=== PATIENT | female | born 1950 | race Caucasian/White ===

== ENCOUNTER 2016-03-09 07:44 | Outpatient (CLI) | payer OTHER ==
[2013-11-05 16:44] VITALS: BMI 25.4
--- NOTE | 2016-03-09 08:28 | CT ---
EXAM: CT of the lumbar spine without contrast History: Lower back pain, history of breast cancer. Comparison: Thoracic spine CT 03/09/2016 Technique: Multiplanar CT images through the lumbar spine were obtained without the administration of IV contrast Findings: Atherosclerotic vascular calcifications. Patchy partially visualized infiltrate within t he left lower lobe. No acute fracture or subluxation. No suspicious lytic or blastic osseous lesions identified by CT. Moderate to severe degenerative disc disease at L1-L2 with endplate sclerosis, vacuum disc phenomen on and osteophyte formation. T12-L1: Bony spinal canal is not compromised and there is no significant bony neural foraminal narr owing. L1-L2: Small to moderate paracentral disc protrusion with no significant bony central canal stenosi s. Mild bilateral bony neural foraminal narrowing secondary to ligamentous and facet hypertrophy. L2-L3: Small disc bulge with no significant bony central canal stenosis. Mild to moderate right an d mild left bony neural foraminal narrowing secondary to ligamentous and facet hypertrophy. L3-L4: Small disc bulge effacing the anterior thecal sac with no significant bony central canal marycarmen nosis. Mild to moderate bilateral bony neural foraminal narrowing secondary to ligamentous and face t hypertrophy. L4-L5: Modest disc protrusion effacing the anterior thecal sac causing a moderate degree of central canal stenosis. There is triangulation of the thecal sac secondary to ligamentous hypertrophy. Mo derate bilateral bony neural foraminal narrowing secondary to ligamentous and facet hypertrophy. L5-S1: Small posterior disc osteophyte complex causing mild bony central canal stenosis. Mild to m oderate bilateral bony neural foraminal narrowing secondary to ligamentous and facet hypertrophy. Impression: 1. No acute osseous abnormality of the lumbar spine and no suspicious lytic or blastic osseous lesi ons identified by CT. 2. Moderate to severe degenerative disc disease at L1-L2. 3. Level by level analysis as detailed above with findings most significant at L4-L5.
--- NOTE | 2016-03-09 08:29 | CT ---
EXAM: CT thoracic spine without contrast. HISTORY: Back pain. Breast cancer. COMPARISON: Radiograph 05/27/[address] 01/22/2010. TECHNIQUE: Multiple axial images of the thoracic spine were obtained without intravenous contrast. Images were reformatted in the sagittal and coronal planes. FINDINGS: The bones are demineralized. No osteolytic or osteoblastic lesions are seen. The normal curvature and alignment are maintained. Vertebral body heights are normal. No fracture or subluxa tion is seen. Multilevel loss of disc height noted, greatest at T7-8 and T8-9 which is moderate. M ultilevel endplate osteophyte formation noted, greater in the [id number] thoracic spine. Disc ost eophyte formation at T8-9 and T9-10 cause flattening of the ventral thecal sac. No significant centr al canal stenosis identified. Right-sided chest port and left-sided pacemaker noted. There has been previous anterior fusion at C 5-C7 with partial corpectomy and strut graft placement at C6. Calcified and noncalcified mediastinal lymph nodes are present. Subpleural nodular density in the posterior left lower lobe measures up t o 1.3 x 0.8 cm on axial images 77 and 78. More ill-defined small nodular and linear densities are s een in the left lower lobe. Atherosclerotic calcifications are present. Possible left renal cyst o n axial image 97. IMPRESSION: 1. No acute abnormality of the thoracic spine. 2. Degenerative disc disease, greater in the lower thoracic spine. 3. Left lower lobe nodule which could be an area of subsegmental atelectasis or pneumonitis. Follo w-up chest CT within 3 months recommended for reassessment.
--- NOTE | 2016-03-09 12:28 | NM ---
EXAM: Whole-body bone scan. HISTORY: Mid and low back pain for 1 month. Breast cancer. COMPARISON: None of this type. PROCEDURE: The patient was injected with 26.7 mCi of 99m technetium HDP intravenously. After an alex ropriate interval, whole-body anterior and posterior images were obtained. Additional spot images w ere obtained. FINDINGS: The thoracic and lumbar spine demonstrate age appropriate changes. There is minimal increa sed activity at the T9-10 disc level which is probably associated with degenerative disease. The rib cage is normal in appearance. The pelvic skeleton is normal in appearance. The kidneys and bladder demonstrate normal, physiologic activity. The lower extremeties demonstrate age appropriate activi ty in the major joints. The upper extremeties demonstrate age appropriate levels of activity in the major joints. Note is made of a prominent increased activity at the first metacarpal carpal articul ations bilaterally. There is modest activity in the AC joints and sternoclavicular joints and arguello um.. The patient is post median sternotomy. The cervical spine demonstrates age appropriate finding s. The calvarium and face demonstrate a normal distribution of activity. IMPRESSION: 1. The whole-body bone scan demonstrates age appropriate findings in the thoracic and lumbar spine. There is modest increased activity in the mid thoracic spine at about the T9-10 disc level which is probably associated with degenerative disc disease. 2. There is evidence of degenerative changes in joints in the extremities listed in the report and o f increased activity in the sternum most probably due to median sternotomy. 3. No focal lesion having the appearance of metastatic disease is demonstrated.
== END 2016-03-09 07:45 | disposition home or self-care (01) ==
LOC: RAD 07:44
PROVIDERS: ATTEND Family Medicine
DX: M54.5 Low back pain (principal); Z85.3 Personal history of malignant neoplasm of breast

== ENCOUNTER 2016-08-06 08:32 | Outpatient (CLI) ==
[2013-11-05 16:44] VITALS: BMI 25.4
[2016-08-06 08:45] VITALS: BP 109/57; TEMP 98.4
[2016-08-06] MEDS ORDERED: PROLIA SUBCUT STA (08:46)
== END 2016-08-06 08:33 | disposition home or self-care (01) ==
LOC: OPMED 08:32
PROVIDERS: ATTEND Family Medicine
DX: M81.0 Age-related osteoporosis without current pathological fracture (principal)
CPT/HCPCS: 96372

== ENCOUNTER 2016-12-28 12:39 | Outpatient (CLI) ==
[2013-11-05 16:44] VITALS: BMI 25.4
--- NOTE | 2016-12-28 13:56 | CT ---
Exam: CT of the sinuses without intravenous contrast. Comparison: 11/07/2013. Reason for exam: Persistent rhinitis. FINDINGS: The left frontal sinus is unopacified. There is mucosal thickening in the left ethmoid a nd right sphenoid sinuses. The maxillary sinuses are unopacified. The mastoid air cells are unopaci fied. No osseous changes or displaced facial fractures are seen. The orbital rims are intact. Moderate degenerative disease is seen in the cervical spine. Impression: 1. Mucosal thickening in the left ethmoid and right sphenoid sinuses consistent with sinus disease. No evidence of osseous erosion. 2. The frontal, left sphenoid, maxillary, and mastoid air cells are unopacified.
--- NOTE | 2016-12-28 14:02 | CT ---
EXAM: CT chest without contrast HISTORY: Persistent cough, rhinitis COMPARISON: None TECHNIQUE: CT chest performed the without intravenous contrast. Coronal and sagittal reformatted im ages obtained. FINDINGS: Left-sided cardiac pacer. Right chest port. Thyroid unremarkable. Heart normal in size. Coronary calcifications. Aorta normal in caliber. Moderate atherosclerosis. Patient status post cholecystectomy. Esophagus unremarkable. Evaluation for lymphadenopathy limited without contrast. The the no acute abnormalities of the bones. Degenerative change in the spine. The median sternotom y wires. Cervical spinal fusion hardware, incompletely imaged. Central airway patent. Bilateral lo wer airway thickening. Bilateral centrilobular nodularity. Scattered bibasilar sub centimeter bibas ilar nodular opacities. No pleural effusion or pneumothorax. No airspace consolidation. Granulomat ous calcification. IMPRESSION: 1. Bilateral lower airway thickening and centrilobular nodularity, consistent with infectious/inflam matory bronchiolitis. Bibasilar sub centimeter nodular opacities, likely infectious/inflammatory. R ecommend CT chest follow-up 6 months to ensure resolution. 2. Coronary calcifications. Atherosclerosis.
== END 2016-12-28 12:40 | disposition home or self-care (01) ==
LOC: RAD 12:39
PROVIDERS: ATTEND Family Medicine
DX: R05 Cough (principal); J31.0 Chronic rhinitis

== ENCOUNTER 2017-06-22 08:04 | Emergency (ER) | payer OTHER ==
[2017-06-22 08:13] VITALS: BP 155/83; TEMP 97.7; BMI 24.4
[2017-06-22] MEDS ORDERED: ZOFRAN 4 MG/2 ML IM STA (08:37)
--- NOTE | 2017-06-22 08:38 | ED.PDOC ---
General ED Provider: Dr. EDY SIMMONS Chief Complaint: Nausea/Vomiting Stated Complaint: Developed Nausea and vominting last evening and has progressively worsened. NO BM for 2 days. Very intense abdominal cramping. Unable to become comfortable. Time Seen by Physician: 08:15 Mode of Arrival: Walk-In Information Source: Patient, Family Exam Limitations: No limitations Primary Care Provider: EDY TAI Nursing and Triage Documentation Reviewed and Agree: Yes Reviewed sepsis parameters & appropriate labs ordered?: Yes System Inflammatory Response Syndrome: Not Applicable Sepsis Protocol: For patient's 13 years and over: Temp is 96.8 and below OR 101 and greater Pulse >90 BPM Resp >20/minute Acutely Altered Mental Status Are patient's symptoms suggestive of a new infection, such as: -Pneumonia -Skin, Soft Tissue -Endocarditis -UTI -Bone, Joint Infection -Implantable Device -Acute Abdominal Infection -Wound Infection -Meningitis -Blood Stream Catheter Infection -Unknown System Inflammatory Response Syndrome: Not Applicable GI Complaint Exam - Abdominal Pain Complaint/Exam Onset: Sudden Duration: 12 hrs Timing: Intermittent Initial Severity: Moderate Current Severity: Moderate Location of Pain: LLQ Radiates To: Denies: Chest, Back, Flank, LLQ, RLQ, Inguinal Character: Reports: Dull, Cramping, Colicky Aggravating: Reports: None Alleviating: Reports: None Associated Signs and Symptoms: Reports: Nausea, Vomiting. Denies: Diaphoresis, Fever, Cough, Chest pain, Dizziness, Back pain, Constipation, Blood in stool, Dysuria, Urinary frequency, Decreased urine output, Decreased appetite, Vaginal bleeding, Vaginal discharge, Diarrhea, Sore throat, Decreased activity AAA Risk Factors: Reports: None Cardiac Risk Factors: Reports: None Ectopic Risk Factors: Reports: None Ovarian Torsion Risk Factors: Reports: None Surgical Obstruction Risk Factors: Reports: None Related Surgical History: Reports: Cholecystectomy Abdominal Findings: Present: Rebound tenderness, Peritoneal signs. Absent: Pulsatile mass, CVA Tenderness, Hernia Differential Diagnoses: Bowel Obstruction, Constipation, Gastroenteritis Review of Systems - Review Of Systems Constitutional: Reports: No symptoms Eyes: Reports: No symptoms Ears, Nose, Mouth, Throat: Reports: No symptoms Respiratory: Reports: No symptoms Cardiac: Reports: No symptoms GI: Reports: Abdomen distended, Constipated, Vomiting : Reports: No symptoms Musculoskeletal: Reports: No symptoms Skin: Reports: No symptoms Neurological: Reports: No symptoms Endocrine: Reports: No symptoms Hematologic/Lymphatic: Reports: No symptoms All Other Systems: Reviewed and Negative Past Medical History - Past Medical History Previously Healthy: No Endocrine: Reports: None Cardiovascular: Reports: CAD, Hypertension, Other (CABG X 5 at [place], [place]) Respiratory: Reports: COPD Hematological: Reports: None Gastrointestinal: Reports: GERD Genitourinary: Reports: CKD Neuro/Psych: Reports: None, Anxiety, Depression Musculoskeletal: Reports: Arthritis, Back Pain, Joint Pain Cancer: Reports: Breast Last Menstrual Period: NA - Surgical History General Surgical History: Reports: Cholecystectomy, Orthopedic (Knee Surgery), Unknown (Carpel Tunnel Release/Mastectomy) - Family History Family History: Reports: Hypertension - Social History Smoking Status: Current every day smoker Hx Substance Use: No Alcohol Screening: None Lives: Alone Physical Exam - Physical Exam Appearance: Ill-appearing, Well-nourished, Thin Ill-appearing: Moderate Pain Distress: Moderate Eyes: BRANDI, EOMI, Conjunctiva clear ENT: Ears normal, Nose normal, Oropharynx normal Respiratory: Airway patent, Breath sounds clear, Breath sounds equal, Respirations nonlabored Cardiovascular: RRR, Pulses normal, No rub, No murmur GI/: Soft, No masses, No Organomegaly, Tender, Bowel sounds hypoactive (High pitched tinkling BS ) Musculoskeletal: Normal strength, ROM intact, No edema, No calf tenderness Skin: Warm, Dry, Normal color Neurological: Sensation intact, Motor intact, Reflexes intact, Cranial nerves intact, Alert, Oriented Psychiatric: Affect appropriate, Mood appropriate, Anxious Re-Evaluation - Re-Evaluation Time of Re-Evaluation: 11:30 Status: Improved Vital Signs Stable: Yes Appearance: NAD Lungs: Clear Skin: Warm and Dry Neuro: Alert and Oriented X3 CV: RRR Additional Comments: BM X2, abdomen soft, non tender with improved BS;Req discharge to home Critical Care Note - Critical Care Note Total Time (mins): 60 Course - Course Hematology/Chemistry: 06/22/17 09:25 06/22/17 09:25 Orders, Labs, Meds: Lab Review 06/22/17 06/22/17 06/22/17 08:34 09:25 09:25 WBC 17.97 H RBC 4.26 Hgb 12.7 Hct 38.6 MCV 90.6 MCH 29.8 MCHC 32.9 RDW Coeff of Carlita 13.2 Plt Count 256 Immature Gran % (Auto) 0.4 Neut % (Auto) 86.8 Lymph % (Auto) 6.0 L [place] % (Auto) 6.7 Eos % (Auto) 0.0 Baso % (Auto) 0.1 Immature Gran # (Auto) 0.1 Neut # (Auto) 15.6 H Lymph # (Auto) 1.1 [place] # (Auto) 1.2 Eos # (Auto) 0.0 Baso # (Auto) 0.0 Puncture Site R brach O2 Saturation 95.0 ABG pH 7.488 H ABG pCO2 30.1 L ABG pO2 70.0 L ABG HCO3 22.8 ABG Total CO2 24 ABG Base Excess -1 Georges Test + O2 Delivery Device Ra FiO2 % 21.0 Sodium 137 Potassium 4.5 Chloride 100 Carbon Dioxide 24 Anion Gap 17.5 BUN 20 H Creatinine 1.26 Estimated GFR (MDRD) 42.00 BUN/Creatinine Ratio 15.87 Glucose 150 H Lactic Acid Calcium 10.4 H Magnesium 1.9 Total Bilirubin 0.6 AST 32 ALT 28 Alkaline Phosphatase 144 H Troponin I 0.0120 Total Protein 8.6 H Albumin 3.9 Globulin 4.7 Albumin/Globulin Ratio 0.83 Lipase 96 H 06/22/17 09:25 WBC RBC Hgb Hct MCV MCH MCHC RDW Coeff of Carlita Plt Count Immature Gran % (Auto) Neut % (Auto) Lymph % (Auto) [place] % (Auto) Eos % (Auto) Baso % (Auto) Immature Gran # (Auto) Neut # (Auto) Lymph # (Auto) [place] # (Auto) Eos # (Auto) Baso # (Auto) Puncture Site O2 Saturation ABG pH ABG pCO2 ABG pO2 ABG HCO3 ABG Total CO2 ABG Base Excess Georges Test O2 Delivery Device FiO2 % Sodium Potassium Chloride Carbon Dioxide Anion Gap BUN Creatinine Estimated GFR (MDRD) BUN/Creatinine Ratio Glucose Lactic Acid 16.5 Calcium Magnesium Total Bilirubin AST ALT Alkaline Phosphatase Troponin I Total Protein Albumin Globulin Albumin/Globulin Ratio Lipase Orders Category Date Time Status ABG DRAW REQUEST Stat CARDIO 06/22/17 08:35 Completed EKG-(ED ONLY) Stat CARDIO 06/22/17 08:34 Completed Enema [ED ENEMA/RECTAL TUBE] .ONCE EMERGENCY 06/22/17 10:20 Active IV [ED IV/MEDIPORT/POWERPORT] .ONCE EMERGENCY 06/22/17 08:34 Active ABG Stat LAB 06/22/17 08:34 Completed BLOOD CULTURE (ED ONLY) Stat LAB 06/22/17 09:25 Results CBC W/ AUTO DIFF Stat LAB 06/22/17 09:25 Completed CMP [COMPREHENSIVE METABOLIC PANEL] Stat LAB 06/22/17 09:25 Completed LACTIC ACID Stat LAB 06/22/17 09:25 Completed LIPASE Stat LAB 06/22/17 09:25 Completed MAGNESIUM Stat LAB 06/22/17 09:25 Completed TROPONIN I Stat LAB 06/22/17 09:25 Completed 0.9 % Sodium Chloride [Saline Flush] MEDS 06/22/17 08:34 Discontinued 1 syr IVF PRN PRN Ondansetron HCl/Pf [Zofran 4 mg/2 ml] MEDS 06/22/17 08:41 Discontinued 4 mg IVP ONCE STA Sodium Chloride 0.9% [Sodium Chloride] 1,000 ml MEDS 06/22/17 08:40 Discontinued IV 200 mls/hr ABDOMEN, SERIES FLAT & UPRIGHT Stat RADS 06/22/17 08:34 Completed CHEST, 1V AP ONLY Stat RADS 06/22/17 08:34 Completed Medications Discontinued Medications Generic Name Dose Route Start Last Admin Trade Name Freq PRN Reason Stop Dose Admin Sodium Chloride 1,000 mls @ 200 mls/hr 06/22/17 08:40 06/22/17 08:43 Sodium Chloride IV 06/22/17 13:39 200 mls/hr .Q5H STA Administration Ondansetron HCl 4 mg 06/22/17 08:41 06/22/17 08:46 Zofran 4 Mg/2 Ml IVP 06/22/17 08:42 4 mg ONCE STA Administration Sodium Chloride 1 syr 06/22/17 08:34 Saline Flush IVF PRN PRN To flush IV Vital Signs: Temp Pulse Resp BP Pulse Ox 06/22/17 08:06 97.7 F 89 22 155/83 H 98 Departure - Departure Time of Disposition: 11:45 Disposition: HOME SELF-CARE Discharge Problem: Fecal obstruction, Constipation, Nausea and vomiting Instructions: Constipation (ED) Condition: Good Pt referred to PMD for follow-up: Yes (Dr Tai ) IPMP verified?: No Additional Instructions: Remain well hydrated Metamucil dose daily routine May consider taking Miralax dosing daily for improved bowel function Allergies/Adverse Reactions: Allergies ceftriaxone sodium [From Rocephin] Adverse Reaction (Verified 06/22/17 08:50) hydrocodone bitartrate [From Lortab] Adverse Reaction (Verified 06/22/17 08:50) morphine Adverse Reaction (Verified 06/22/17 08:50) Home Medications: Ambulatory Orders Aspirin [Aspirin EC] 81 mg PO DAILYWM 07/18/13 Carvedilol [Coreg] 3.125 mg PO BIDWM 07/18/13 Albuterol Sulfate [Proair Hfa] 2 puff IH Q4H PRN 11/05/13 Cyanocobalamin (Vitamin B-12) [Vitamin B-12] 1,000 mcg PO DAILY 11/05/13 Denosumab [Prolia] 60 mg SQ DIRECTED 11/05/13 Nitroglycerin [Nitrostat] 0.4 mg SL Q5MIN X 3 DOSES PRN 11/05/13 Pravastatin Sodium [Pravachol] 40 mg PO BEDTIME 11/05/13 Ubidecarenone [Coenzyme Q10] 400 mg PO DAILY 11/05/13 Acetaminophen [Pain Relief] 650 mg PO Q6H PRN 01/24/15 Fluticasone Propionate [Flonase] 1 inh CHERYL BID 01/24/15 Olmesartan Medoxomil [Benicar] 40 mg PO DAILY 01/24/15 Azelastine HCl [Astelin 0.1%] 2 spray NS BID 06/22/17 Colestipol HCl [Colestid] 1 gm PO PRN PRN 06/22/17 Diazepam 5 mg PO BID PRN 06/22/17 Ergocalciferol (Vitamin D2) [Vitamin D2] 50,000 unit PO DAILY 06/22/17 Ferrous Sulfate [Feosol] 325 mg PO DAILY 06/22/17 Hydrocodone Bit/Acetaminophen [Poth 10-325] 1 each PO PRN PRN 06/22/17 Lidocaine/Prilocaine [Emla Cream] 1 applic TP PRN PRN 06/22/17 Mometasone/Formoterol [Dulera 200 Mcg/5 Mcg Inhaler] 13 gm IH DAILY 06/22/17 Montelukast Sodium [Singulair] 10 mg PO BEDTIME 06/22/17 Ubidecarenone [Coenzyme Q10] 100 mg PO DAILY 06/22/17
[2017-06-22] MEDS ORDERED: SODIUM CHLORIDE 1,000 ML IV STA (08:40)
[2017-06-22] MEDS ORDERED: ZOFRAN 4 MG/2 ML IVP STA (08:41)
--- NOTE | 2017-06-22 09:18 | DI ---
EXAM: Acute abdominal series HISTORY: Abdominal pain with nausea and vomiting. COMPARISON: CT abdomen pelvis 11/02/2013 FINDINGS: There is no free air, portal venous gas or dilated loops of bowel. Sternotomy wires are pr esent. The lung bases are clear. There are surgical clips in right upper quadrant. There is modera te amount of stool in the ascending colon and in the pelvis. There is degenerative disease of the sp ine and hips. IMPRESSION: 1. Nonobstructive bowel gas pattern with moderate amount of stool in the ascending colon in the pelv is. 2. Prior cholecystectomy.
--- NOTE | 2017-06-22 09:19 | DI ---
EXAM: Single view of the chest HISTORY: Abdominal pain with nausea and vomiting. COMPARISON: Chest x-ray 11/15/[address] chest 12/28/2016 FINDINGS: The cardiomediastinal silhouette is unchanged with stable sternotomy wires, lead wires and a new right Port-A-Cath with the tip at the cavoatrial junction. There is fusion hardware in the cer vical spine. There is no pneumothorax or pleural effusion. There is no consolidation, nodule or mas s. The osseous structures are unremarkable. IMPRESSION: 1. No acute cardiopulmonary process. 2. New right Port-A-Cath as described above with no pneumothorax.
== END 2017-06-22 11:55 | disposition home or self-care (01) ==
LOC: ED 08:04
DX: K59.00 Constipation, unspecified (principal); R11.2 Nausea with vomiting, unspecified; I10 Essential (primary) hypertension; I25.810 Atherosclerosis of coronary artery bypass graft(s) without angina pectoris; N18.9 Chronic kidney disease, unspecified; K21.9 Gastro-esophageal reflux disease without esophagitis; J44.9 Chronic obstructive pulmonary disease, unspecified; F17.210 Nicotine dependence, cigarettes, uncomplicated; Z79.899 Other long term (current) drug therapy
CPT/HCPCS: 36415; 80053; 82803; 83605; 83690; 83735; 84484; 85025; 87040; 93005; 93010; 96361; 96374; 99283

== ENCOUNTER 2017-07-20 08:41 | Outpatient (CLI) | payer OTHER ==
[2017-07-20] MEDS ORDERED: PROLIA SUBCUT STA (08:58)
[2017-07-20 09:02] VITALS: BP 116/67; TEMP 98
== END 2017-07-20 08:42 | disposition home or self-care (01) ==
LOC: OPMED 08:41
PROVIDERS: ATTEND Family Medicine
DX: M81.0 Age-related osteoporosis without current pathological fracture (principal); Q78.2 Osteopetrosis
CPT/HCPCS: 96372

== ENCOUNTER 2017-08-19 08:49 | Outpatient (CLI) | payer OTHER ==
--- NOTE | 2017-08-19 11:24 | CT ---
EXAM: CT pelvis with without contrast HISTORY: vulvar cancer. COMPARISON: CT abdomen pelvis 11/02/2013 TECHNIQUE: Serial axial images of the pelvis were obtained before and after the administration of 10 0 ml of Visipaque IV contrast. These were viewed in multiple planes. FINDINGS: The pelvis demonstrates mild subcutaneous edema in the inferior pelvis no definitive mass i dentified. Pelvic soft tissues are unremarkable. The colon and small bowel in the pelvis. There is no lymphadenopathy. There is moderate atherosclerotic change. The osseous structures demonstrate no lytic or blastic lesion. IMPRESSION: 1. No acute abnormality, mass or evidence of metastatic disease. 2. Atherosclerotic disease and degenerative disease of the spine.
== END 2017-08-19 08:50 | disposition home or self-care (01) ==
LOC: RAD 08:49
PROVIDERS: ATTEND Nurse Practitioner Family
DX: Z85.44 Personal history of malignant neoplasm of other female genital organs (principal)

== ENCOUNTER 2018-03-04 09:55 | Outpatient (CLI) | payer OTHER ==
[2018-01-23 01:56] VITALS: BMI 24.1
[2018-03-04] MEDS ORDERED: PROLIA SUBCUT STA (10:00)
[2018-03-04 10:21] VITALS: BP 123/72; TEMP 98.2
== END 2018-03-04 09:56 | disposition home or self-care (01) ==
LOC: OPMED 09:55
PROVIDERS: ATTEND Family Medicine
DX: M81.0 Age-related osteoporosis without current pathological fracture (principal); Q78.2 Osteopetrosis
CPT/HCPCS: 96372

== ENCOUNTER 2018-09-27 09:10 | Outpatient (CLI) ==
[2018-01-23 01:56] VITALS: BMI 24.1
[2018-09-27] MEDS ORDERED: PROLIA SUBCUT STA (09:23)
[2018-09-27 09:41] VITALS: BP 126/64; TEMP 98
== END 2018-09-27 09:11 | disposition home or self-care (01) ==
LOC: OPMED 09:10
PROVIDERS: ATTEND Family Medicine
DX: M81.0 Age-related osteoporosis without current pathological fracture (principal)